=== PATIENT | female | born 1960 | race Two or more races ===

== ENCOUNTER → 2019-03-13 | Day surgery (SDC) | payer OTHER | END | disposition home or self-care (01) | LOC: AMB-ENDOS 06:47 | DX: K57.30 Diverticulosis of large intestine without perforation or abscess without bleeding (principal); K29.60 Other gastritis without bleeding; K63.5 Polyp of colon; K64.1 Second degree hemorrhoids; B96.81 Helicobacter pylori [H. pylori] as the cause of diseases classified elsewhere; Z12.11 Encounter for screening for malignant neoplasm of colon ==

== ENCOUNTER 2021-06-09 07:10 | Day surgery (SDC) | payer OTHER | END 2021-06-09 14:50 | disposition home or self-care (01) | LOC: AMB-ENDOS 07:10 | PROVIDERS: ATTEND Colon & Rectal Surgery | DX: K63.5 Polyp of colon (principal); Z20.822 Contact with and (suspected) exposure to COVID-19; Z12.11 Encounter for screening for malignant neoplasm of colon ==

== ENCOUNTER → 2021-10-02 08:00 | Outpatient (CLI) | payer OTHER | END | disposition home or self-care (01) | LOC: LAB 08:00 → ADM 14:30 → EDSTATUS 10-04 14:30 → AMB-ENDOS 10-04 14:30 | PROVIDERS: ATTEND Colon & Rectal Surgery | DX: K29.00 Acute gastritis without bleeding (principal); K21.9 Gastro-esophageal reflux disease without esophagitis; Z03.818 Encounter for observation for suspected exposure to other biological agents ruled out; R15.9 Full incontinence of feces; Q43.7 Persistent cloaca; N81.6 Rectocele ==